=== PATIENT | female | born 1965 | race Caucasian/White ===

== ENCOUNTER → 2016-11-23 08:19 | Outpatient (CLI) | payer OTHER ==
[2013-09-25 09:45] VITALS: BMI 34.9
[~2016-11-23 08:19] MED LIST: COMPAZINE10 MG PO; IMITREX100 MG PO; KEPPRA250 MG PO; NORCO 10/325 TA1 TA1 PO; ZOLOFT50 MG PO
== END | disposition home or self-care (01) ==
LOC: D.MRI 08:19
DX: R51 Headache (principal); R20.8 Other disturbances of skin sensation

== ENCOUNTER → 2016-11-29 18:23 | Outpatient (CLI) | payer OTHER ==
[2013-09-25 09:45] VITALS: BMI 34.9
== END | disposition home or self-care (01) ==
LOC: D.LABREF 18:23
DX: G43.109 Migraine with aura, not intractable, without status migrainosus (principal)

== ENCOUNTER → 2016-12-01 19:27 | Outpatient (CLI) | payer OTHER ==
[2013-09-25 09:45] VITALS: BMI 34.9
== END | disposition home or self-care (01) ==
LOC: D.LABREF 19:27
DX: D64.9 Anemia, unspecified (principal)

== ENCOUNTER → 2016-12-21 14:04 | Outpatient (CLI) | payer OTHER ==
[2013-09-25 09:45] VITALS: BMI 34.9
== END | disposition home or self-care (01) ==
LOC: D.CT 14:04
DX: S92.341A Displaced fracture of fourth metatarsal bone, right foot, initial encounter for closed fracture (principal)

== ENCOUNTER → 2017-03-04 14:46 | Outpatient (CLI) | payer OTHER ==
[2013-09-25 09:45] VITALS: BMI 34.9
== END | disposition home or self-care (01) ==
LOC: D.LABREF 14:46
DX: K11.9 Disease of salivary gland, unspecified (principal)

== ENCOUNTER → 2017-03-09 13:43 | Outpatient (CLI) | payer OTHER ==
[2013-09-25 09:45] VITALS: BMI 34.9
== END | disposition home or self-care (01) ==
LOC: D.CT 13:43
DX: K11.20 Sialoadenitis, unspecified (principal)

== ENCOUNTER 2017-05-09 17:28 | Emergency (ER) | payer OTHER ==
[2013-09-25 09:45] VITALS: BMI 34.9
[2017-05-09 19:03] LABS: BASOPHILS 0.2 % (0-2); EOSINOPHILS 5.2 % (0-7); HEMATOCRIT 37.1 % (36.0-48.0); HEMOGLOBIN 12.1 g/dL (12-16); IMMATURE GRANULOCYTES 0.2 % (0-5); LYMPHOCYTES 21.2 % (15-50); MCH 28.3 pg (26.0-34.0); MCHC 32.6 g/dL (31.0-37.0); MCV 86.9 fL (80.0-100.0); MEAN PLATELET VOLUME 10.6 fL (7.4-10.4); NEUTROPHILS 67.2 % (40-80); PLATELET COUNT 251 10x3/uL (130-400); RBC 4.27 10x6/uL (4.00-5.40); RDW 13.9 % (11.5-14.5)
[2017-05-09 19:40] LABS: ALBUMIN 3.3 g/dL (3.4-5.0); ALKALINE PHOSPHATASE 50 U/L (46-116); ALT (SGPT) 23 U/L (10-68); BILIRUBIN - TOTAL 0.31 mg/dL (0.2-1.3); CALC OSMOLALITY 275 mosm/kg (275-300); CALCIUM 8.9 mg/dL (8.5-10.1); CARBON DIOXIDE 27.5 mmol/L (21.0-32.0); CHLORIDE - SERUM 105 mmol/L (98-107); CREATININE - SERUM 0.9 mg/dL (0.6-1.3); GLUCOSE 88 mg/dL (74-106); POTASSIUM - SERUM 3.3 mmol/L (3.5-5.1); PROTEIN - SERUM 7.7 g/dL (6.4-8.2); SODIUM 139 mmol/L (136-145); UREA NITROGEN 11 mg/dL (7-18); eGFR NON AFRICAN AMERICAN 70 mL/min (90-120)
[2017-05-09 19:47] LABS: TROPONIN-I < 0.017 ng/mL (0.000-0.060)
[2017-05-09 20:22] LABS: C-REACTIVE PROTEIN 0.7 mg/dL (0.0-0.9)
== END 2017-05-09 22:33 | disposition home or self-care (01) ==
LOC: D.ER 17:28
PROVIDERS: Emergency Medicine; Family Medicine
DX: R04.2 Hemoptysis (principal)

== ENCOUNTER → 2018-01-13 07:40 | Outpatient (CLI) | payer OTHER ==
[2013-09-25 09:45] VITALS: BMI 34.9
== END | disposition home or self-care (01) ==
LOC: D.CT 07:40
DX: J18.9 Pneumonia, unspecified organism (principal)

== ENCOUNTER 2018-04-17 05:30 | Inpatient (IN) | payer OTHER ==
[2018-04-13 15:15] LABS: BASOPHILS 0.2 % (0-2); EOSINOPHILS 12.9 % (0-7); HEMATOCRIT 39.3 % (36.0-48.0); HEMOGLOBIN 12.8 g/dL (12-16); IMMATURE GRANULOCYTES 0.2 % (0-5); LYMPHOCYTES 26.7 % (15-50); MCH 28.5 pg (26.0-34.0); MCHC 32.6 g/dL (31.0-37.0); MCV 87.5 fL (80.0-100.0); MEAN PLATELET VOLUME 10.5 fL (7.4-10.4); MONOCYTES 8.4 % (2-11); NEUTROPHILS 51.6 % (40-80); RBC 4.49 10x6/uL (4.00-5.40); RDW 13.6 % (11.5-14.5)
[2018-04-13 15:18] LABS: PLATELET COUNT 195 10x3/uL (130-400)
[2018-04-13 15:23] LABS: ANION GAP 11.1 mmol/L (8-16); CALCIUM 8.7 mg/dL (8.5-10.1); CREATININE - SERUM 0.9 mg/dL (0.6-1.3); POTASSIUM - SERUM 4.1 mmol/L (3.5-5.1)
[~2018-04-17] VITALS: Ht 160 cm; Wt 87.1 kg
[~2018-04-17 05:30] MED LIST changes: +AMERGE2.5 MG PO; +EZFE 200200 MG PO; +FISH OIL 1,2001 CAP PO; +GEMFIBROZIL600 MG PO; +KENALOG 0.1 % 115 GM TOPICAL; +LEVOXYL50 MCG PO; +PHENERGAN DM SYR5 ML PO; +PROAIR HFA8.5 GM INH; +PROBIOTIC250 MG PO; +ROBAXIN500 MG PO; +ULTRAVATE TP; +VERAPAMIL HCL40 MG PO; +VITAMIN B-1000 MCG/M SL; +VITAMIN D31000 UNIT PO
[2018-04-17 05:48] VITALS: BP 108/60; BMI 33.7
[2018-04-17 06:22] LABS: HCG URINE NEGATIVE (NEGATIVE)
[2018-04-17 12:22] VITALS: BP 113/61
[2018-04-17 14:08] VITALS: BP 116/50; BMI 34.0
[2018-04-17 17:49] VITALS: BP 116/50
[2018-04-17 20:00] VITALS: BP 106/61
[2018-04-18 06:13] LABS: BASOPHILS 0.1 % (0-2); EOSINOPHILS 0.9 % (0-7); HEMATOCRIT 34.7 % (36.0-48.0); HEMOGLOBIN 11.3 g/dL (12-16); IMMATURE GRANULOCYTES 0.2 % (0-5); LYMPHOCYTES 17.2 % (15-50); MCH 28.3 pg (26.0-34.0); MCHC 32.6 g/dL (31.0-37.0); MCV 86.8 fL (80.0-100.0); MEAN PLATELET VOLUME 10.9 fL (7.4-10.4); MONOCYTES 7.4 % (2-11); NEUTROPHILS 74.2 % (40-80); PLATELET COUNT 209 10x3/uL (130-400); RDW 13.7 % (11.5-14.5); WBC 10.5 10x3/uL (4.8-10.8)
[2018-04-18 06:41] LABS: CARBON DIOXIDE 27.8 mmol/L (21.0-32.0); CHLORIDE - SERUM 98 mmol/L (98-107); CREATININE - SERUM 0.9 mg/dL (0.6-1.3); GLUCOSE 90 mg/dL (74-106); MAGNESIUM - SERUM 1.7 mg/dL (1.8-2.4); POTASSIUM - SERUM 3.2 mmol/L (3.5-5.1); PRO BNP 439 pg/mL (0-125); SODIUM 135 mmol/L (136-145); eGFR NON AFRICAN AMERICAN 70 mL/min (90-120)
[2018-04-18 06:49] LABS: CALC OSMOLALITY 269 mosm/kg (275-300); UREA NITROGEN 13 mg/dL (7-18)
[2018-04-18 07:10] LABS: TROPONIN-I < 0.017 ng/mL (0.000-0.060)
[2018-04-18 10:30] VITALS: BP 126/65
[2018-04-18 10:48] VITALS: Ht 160 cm; Wt 87.1 kg
[2018-04-18 13:24] VITALS: BP 129/64
[2018-04-19] VITALS: BP 1138/69
[2018-04-19 00:54] LABS: BASOPHILS 0.2 % (0-2); EOSINOPHILS 1.1 % (0-7); HEMATOCRIT 35.4 % (36.0-48.0); HEMOGLOBIN 11.8 g/dL (12-16); IMMATURE GRANULOCYTES 0.3 % (0-5); LYMPHOCYTES 15.4 % (15-50); MCH 28.4 pg (26.0-34.0); MCHC 33.3 g/dL (31.0-37.0); MCV 85.3 fL (80.0-100.0); MEAN PLATELET VOLUME 10.4 fL (7.4-10.4); MONOCYTES 6.9 % (2-11); NEUTROPHILS 76.1 % (40-80); PLATELET COUNT 209 10x3/uL (130-400); RBC 4.15 10x6/uL (4.00-5.40); RDW 13.5 % (11.5-14.5); WBC 9.3 10x3/uL (4.8-10.8)
[2018-04-19 04:00] VITALS: BP 97/59
[2018-04-19 04:05] LABS: APPEARANCE CLEAR (CLEAR); BILIRUBIN NEGATIVE (NEGATIVE); COLOR YELLOW (YELLOW); GLUCOSE NEGATIVE (NEGATIVE); KETONE NEGATIVE (NEGATIVE); NITRITE NEGATIVE (NEGATIVE); PROTEIN NEGATIVE (NEGATIVE); UROBILINOGEN NORMAL (NORMAL)
[2018-04-19 04:07] LABS: BACTERIA NONE SEEN /hpf (NONE SEEN); EPITHELIAL CELLS 0-5 /hpf (0-5); RED CELLS - URINE NONE SEEN /hpf (0-5); WHITE CELLS - URINE 0-5 /hpf (0-5)
[2018-04-19 07:44] LABS: ANION GAP 10.6 mmol/L (8-16); CALCIUM 8.4 mg/dL (8.5-10.1); CARBON DIOXIDE 27.7 mmol/L (21.0-32.0); CREATININE - SERUM 0.9 mg/dL (0.6-1.3); MAGNESIUM - SERUM 1.8 mg/dL (1.8-2.4); PHOSPHOROUS 3.3 mg/dL (2.5-4.9); POTASSIUM - SERUM 3.3 mmol/L (3.5-5.1)
[2018-04-19 09:56] VITALS: BP 161/71
[2018-04-19 13:28] VITALS: BP 108/70
[2018-04-19 16:40] VITALS: BP 123/69
[2018-04-19 20:00] VITALS: BP 109/58
[2018-04-20 04:28] VITALS: BP 199/43
[2018-04-20 06:37] LABS: ANION GAP 13.6 mmol/L (8-16); CALCIUM 8.2 mg/dL (8.5-10.1); CARBON DIOXIDE 27.1 mmol/L (21.0-32.0); CREATININE - SERUM 0.9 mg/dL (0.6-1.3); POTASSIUM - SERUM 3.7 mmol/L (3.5-5.1)
[2018-04-20 06:39] LABS: BASOPHILS 0.4 % (0-2); EOSINOPHILS 12.4 % (0-7); HEMATOCRIT 35.7 % (36.0-48.0); HEMOGLOBIN 11.7 g/dL (12-16); IMMATURE GRANULOCYTES 0.2 % (0-5); MCH 28.4 pg (26.0-34.0); MCHC 32.8 g/dL (31.0-37.0); MCV 86.7 fL (80.0-100.0); MEAN PLATELET VOLUME 10.9 fL (7.4-10.4); PLATELET COUNT 226 10x3/uL (130-400); RBC 4.12 10x6/uL (4.00-5.40); RDW 13.7 % (11.5-14.5)
[2018-04-20 06:50] LABS: WBC 5.6 10x3/uL (4.8-10.8)
[2018-04-20] MEDS ORDERED: OXYCODONE HCL10 MG PO (10:38)
[2018-04-20] MEDS ORDERED: MOBIC7.5 MG PO (10:39)
== END 2018-04-20 11:35 | disposition home or self-care (01) | DRG 742 ==
LOC: D.OPS 05:30 → D.PAN 07:30 → D.MS 11:56 → D.OPS 11:57 → D.MS 11:57
PROVIDERS: Internal Medicine Pulmonary Disease; Obstetrics & Gynecology
PROC: 0UT9FZZ Resection of Uterus, Via Natural or Artificial Opening With Percutaneous Endoscopic Assistance (ICD-10-PCS; principal; 2018-04-17 07:30)
PROC: 0UT2FZZ Resection of Bilateral Ovaries, Via Natural or Artificial Opening With Percutaneous Endoscopic Assistance (ICD-10-PCS; 2018-04-17 07:30)
DX: N93.8 Other specified abnormal uterine and vaginal bleeding (principal); J95.821 Acute postprocedural respiratory failure; J98.11 Atelectasis; Y83.8 Other surgical procedures as the cause of abnormal reaction of the patient, or of later complication, without mention of misadventure at the time of the procedure; N83.209 Unspecified ovarian cyst, unspecified side; G47.33 Obstructive sleep apnea (adult) (pediatric); K21.9 Gastro-esophageal reflux disease without esophagitis; L93.2 Other local lupus erythematosus; M79.7 Fibromyalgia; J44.9 Chronic obstructive pulmonary disease, unspecified; E78.1 Pure hyperglyceridemia; Z80.9 Family history of malignant neoplasm, unspecified

== ENCOUNTER → 2018-06-23 14:01 | Outpatient (CLI) | payer OTHER ==
[2018-04-18 10:48] VITALS: BMI 34.0
[~2018-06-23 14:01] MED LIST changes: +MOBIC7.5 MG PO; +OXYCODONE HCL10 MG PO
== END | disposition home or self-care (01) ==
LOC: D.US 14:01
DX: E03.9 Hypothyroidism, unspecified (principal)

== ENCOUNTER → 2018-07-03 09:54 | Outpatient (CLI) | payer OTHER ==
[2018-04-18 10:48] VITALS: BMI 34.0
== END | disposition home or self-care (01) ==
LOC: D.RAD 09:54
DX: J44.9 Chronic obstructive pulmonary disease, unspecified (principal)

== ENCOUNTER → 2018-07-05 09:40 | Day surgery (SDC) | payer OTHER ==
[2018-04-18 10:48] VITALS: BMI 34.0
== END | disposition home or self-care (01) ==
LOC: D.RAD 09:40
DX: J18.1 Lobar pneumonia, unspecified organism (principal)

== ENCOUNTER → 2018-09-07 13:37 | Outpatient (CLI) | payer OTHER ==
[2018-04-18 10:48] VITALS: BMI 34.0
== END | disposition home or self-care (01) ==
LOC: D.RT 07-28 09:00
DX: J44.9 Chronic obstructive pulmonary disease, unspecified (principal)